=== PATIENT | male | born 1995 | race Caucasian/White ===

== ENCOUNTER 2019-09-05 06:49 | Emergency (ER) | payer OTHER ==
[~2019-09-05] VITALS: Ht 177.8 cm; Wt 60.0 kg
[2019-09-05 07:51] VITALS: BP 123/72
[2019-09-05 08:46] LABS: OCCULT BLOOD STOOL NEGATIVE (Neg)
== END 2019-09-05 07:54 ==
LOC: ER 06:50
DX: K64.9 Unspecified hemorrhoids (principal)
CPT/HCPCS: 82272; 99283

== ENCOUNTER 2019-11-06 21:57 | Emergency (ER) | payer OTHER ==
[~2019-11-06] VITALS: Ht 167.6 cm; Wt 77.3 kg
[2019-11-06] MEDS ORDERED: ketorolac trometh inj. 60 MG/2 ML VIAL IM ONE (22:45)
[2019-11-06 23:10] VITALS: BP 127/72
== END 2019-11-06 23:10 | disposition home or self-care (01) ==
LOC: ER 21:58
DX: M54.41 Lumbago with sciatica, right side (principal)
CPT/HCPCS: 96372; 99283; J1885

== ENCOUNTER 2019-12-07 19:26 | Emergency (ER) | payer MEDICAID, OTHER ==
[~2019-12-07] VITALS: Ht 167.6 cm; Wt 77.1 kg
[2019-12-07 19:34] VITALS: BP 142/87
== END 2019-12-07 20:34 | disposition home or self-care (01) ==
LOC: ER 19:27
DX: F15.90 Other stimulant use, unspecified, uncomplicated (principal); F11.90 Opioid use, unspecified, uncomplicated
CPT/HCPCS: 99281

== ENCOUNTER 2020-04-16 02:30 | Emergency (ER) | payer MEDICAID ==
[~2020-04-16] VITALS: Ht 167.6 cm; Wt 80.0 kg
[2020-04-16] MEDS ORDERED: rifampin 300mg capsule PO ONE (03:40)
[2020-04-16] MEDS ORDERED: sulfamethoxazole/trimethoprim DS (800/160mg) tablet PO ONE (03:40)
[2020-04-16] MEDS ORDERED: SULF1TAB49 PO (03:40)
[2020-04-16] MEDS ORDERED: rifaximin 550mg tablet PO ONE (03:45)
[2020-04-16 04:14] VITALS: BP 109/68
== END 2020-04-16 04:15 | disposition home or self-care (01) ==
LOC: ER 02:31
DX: L03.116 Cellulitis of left lower limb (principal); F11.10 Opioid abuse, uncomplicated; F17.218 Nicotine dependence, cigarettes, with other nicotine-induced disorders; F15.90 Other stimulant use, unspecified, uncomplicated; Z79.899 Other long term (current) drug therapy
CPT/HCPCS: 99283; 99285; 99406

== ENCOUNTER 2020-06-06 23:30 | Emergency (ER) | payer MEDICAID ==
[~2020-06-06] VITALS: Ht 167.6 cm; Wt 81.8 kg
[2020-06-06 23:35] VITALS: BP 124/76
--- NOTE | 2020-06-06 23:41 | NUR ---
Pt took 400 mg ibuprofen for pain at 1600 with little relief.
[2020-06-07] MEDS ORDERED: SULF1TAB49 PO (01:09)
[2020-06-07] MEDS ORDERED: sulfamethoxazole/trimethoprim DS (800/160mg) tablet PO ONE (01:25)
== END 2020-06-07 01:36 | disposition home or self-care (01) ==
LOC: ER 23:30
DX: L03.113 Cellulitis of right upper limb (principal); F15.90 Other stimulant use, unspecified, uncomplicated; F11.90 Opioid use, unspecified, uncomplicated; Z79.899 Other long term (current) drug therapy
CPT/HCPCS: 99284

== ENCOUNTER 2020-11-07 12:09 | Emergency (ER) | payer MEDICAID ==
[~2020-11-07] VITALS: Ht 170.2 cm; Wt 73.0 kg
[2020-11-07 12:24] VITALS: BP 117/72
[2020-11-07] MEDS ORDERED: pilocarpine 2% ophthalmic drops 15ml LEFTEYE ONE (13:40)
[2020-11-07] MEDS ORDERED: proparacaine 0.5% ophthalmic drops 15ml LEFTEYE ONE ×2 (13:50)
[2020-11-07] MEDS ORDERED: POLOS EACHEYE (14:14)
== END 2020-11-07 14:37 | disposition home or self-care (01) ==
LOC: ER 12:10
DX: H10.9 Unspecified conjunctivitis (principal); H57.12 Ocular pain, left eye; F15.90 Other stimulant use, unspecified, uncomplicated; F11.90 Opioid use, unspecified, uncomplicated; Z79.899 Other long term (current) drug therapy
CPT/HCPCS: 99283

== ENCOUNTER 2024-02-15 11:14 | Emergency (ER) | payer MEDICAID ==
[~2024-02-15] VITALS: Ht 175.3 cm; Wt 73.8 kg
[2024-02-15 12:02] LABS: BASOPHILS % (AUTO) 0.4 % (0-1); EOSINOPHILS # (AUTO) 0.1 X10'3 (0-0.9); EOSINOPHILS % (AUTO) 2.3 % (0-6); HEMATOCRIT 48.5 % (42.0-52.0); HEMOGLOBIN 16.4 g/dl (14.0-17.9); LYMPHOCYTES # (AUTO) 1.4 X10'3 (1.1-4.8); LYMPHOCYTES % (AUTO) 26.5 % (21-51); MEAN CORPUSCULAR HEMOGLOBIN 29.5 PG (27.0-31.0); MEAN CORPUSCULAR HGB CONC 33.9 g/dL (33.0-36.5); MEAN PLATELET VOLUME 7.6 FL (7.4-10.4); MONOCYTES # (AUTO) 0.4 X10'3 (0-0.9); MONOCYTES % (AUTO) 7.7 % (2-12); NEUTROPHILS # (AUTO) 3.4 X10'3 (1.8-7.7); NEUTROPHILS % (AUTO) 63.1 % (42-75); PLATELET COUNT 228 X10'3 (140-440); RED BLOOD COUNT 5.57 X10'6 (4.70-6.10); RED CELL DISTRIBUTION WIDTH 13.7 % (11.5-14.5); WHITE BLOOD COUNT 5.5 X10'3 (4.5-11.0)
[2024-02-15 12:10] LABS: ALBUMIN 4.3 G/DL (3.4-5.0); ANION GAP 4 (8-16); BLOOD UREA NITROGEN 12 MG/DL (7-18); BUN/CREATININE RATIO 13.6 (10.0-20.0); CALCIUM 8.7 MG/DL (8.5-10.1); CHLORIDE 104 MMOL/L (99-107); CREATININE 0.88 MG/DL (0.60-1.10); GLUCOSE 106 MG/DL (70-104); LIPASE 16 U/L (16-77); POTASSIUM 4.1 MMOL/L (3.5-5.1); SODIUM 141 MMOL/L (135-145); TOTAL CARBON DIOXIDE 33.1 MMOL/L (24-32); eCRCL 123 ML/MIN; eGFR > 90 ML/MIN
[2024-02-15] MEDS ORDERED: OMEP40CA21 PO (13:29)
[2024-02-15 13:43] VITALS: BP 128/84; PULSE 82; RESP 17; TEMP 98; O2SAT 100
== END 2024-02-15 13:45 | disposition home or self-care (01) ==
LOC: ER 11:15
DX: R10.13 Epigastric pain (principal); R11.10 Vomiting, unspecified; F15.10 Other stimulant abuse, uncomplicated; Z79.899 Other long term (current) drug therapy
CPT/HCPCS: 36415; 80048; 83690; 85025; 99283

== ENCOUNTER 2024-03-14 11:43 | Emergency (ER) | payer MEDICAID ==
[~2024-03-14] VITALS: Ht 175.3 cm; Wt 76.2 kg
[~2024-03-14 11:43] MED LIST: OMEP40CA21 PO
[2024-03-14 12:16] VITALS: BP 109/59; PULSE 69; TEMP 97.6; O2SAT 98
[2024-03-14] MEDS ORDERED: NAPR-56 PO (14:22)
[2024-03-14] MEDS ORDERED: DOXY-1 PO (14:22)
[2024-03-14] MEDS ORDERED: ketorolac trometh inj. 60 MG/2 ML VIAL IM ONE (14:30)
[2024-03-14 14:34] VITALS: RESP 17
[2024-03-14] MEDS: ketorolac tromethamine 15mg/ml inj. IM ONE (14:34)
== END 2024-03-14 14:52 | disposition home or self-care (01) ==
LOC: ER 11:43
DX: K04.7 Periapical abscess without sinus (principal); F15.90 Other stimulant use, unspecified, uncomplicated; Z79.899 Other long term (current) drug therapy
CPT/HCPCS: 96372; 99283; J1885

== ENCOUNTER 2025-09-04 16:57 | Emergency (ER) | payer MEDICAID ==
[~2025-09-04] VITALS: Ht 175.3 cm; Wt 86.3 kg
[2025-09-04 17:01] VITALS: BP 96/56; PULSE 51; RESP 18; TEMP 97.5; O2SAT 97
--- NOTE | 2025-09-04 17:05 | Physician Documentation ---
History of Present Illness Stated Complaint: VOMITING Primary Medical Doctor: NONE HPI Patient 29-year-old male that presents to the emergency department for 3 days of nausea vomiting abdominal pain and mild diarrhea. Patient denies fever chills blood in his urine blood in his emesis or any other symptoms at this time. Patient denies any known sick contacts at this time. Very pleasant 29-year-old male states he has had excessive GI upset especially in the mornings. Asked if he drinks alcohol he denies. Does state that most evenings he eats ice cream right before bed. Day of Onset: Sep 04, 2025 Medication Reconciliation Allergies: Coded Allergies: No Known Allergies (Unverified , 09/04/25) Scheduled Omeprazole (Prilosec), 1 CAP PO DAILY Past Medical History Past Medical History: No Pertinent History Past Surgical History: noncontributory Alcohol Use: None Drug Use: methamphetamine, heroin Lives In: Home Occupation: employed Review of Systems All Other Systems at this time: Reviewed and Negative ROS As stated above in the HPI, otherwise all systems are reviewed and negative. Physical Exam Physical Exam General: Alert, no apparent distress. Respiratory: Lungs clear, no respiratory distress. Cardiovascular: Regular rate and rhythm, no murmurs. Gastrointestinal: Soft, nontender, nondistended. Bowels sounds present. . Neurologic: Oriented x4. Psychiatric: Normal mood and affect. Skin: Normal color, warm and dry. No edema, no ecchymosis. Medical Decision Making Additional information obtaine: N/A Findings I suspect GI upset secondary to late night ice cream leading to increased acidity and increased a gastric acid in the evening attribute to his symptoms being primarily in the morning Differential Dx:Considerations: Cholelithasis, Gastritis/PUD, Hernia Departure Disposition: HOME / SELF CARE / HOMELESS Impression: Primary Impression: Acute gastritis Condition: Stable Discharge Instructions: Gastritis, Adult Referrals: NO PRIMARY CARE PROVIDER (PCP) Prescriptions Omeprazole (Prilosec) 40 Mg Capsule 1 CAP PO DAILY for 30 Days, #30 CAP Prov: DONTRELL TINSLEY NP 09/04/25 Education Educated: Patient Educated regarding: diagnosis Signature Scribe Signature: landy Attestation: Scribed for Dontrell Tinsley Np by Dontrell De Leon NP . 09/04/25 18:28 ALONDRA BROWNINGP Sep 04, 2025 17:05 DONTRELL TINSLEY NP Sep 04, 2025 17:08
[2025-09-04] MEDS ORDERED: OMEP40CA21 PO (18:28)
[2025-09-04] MEDS: mag hydrox/Alum hydrox/simeth 30ml oral suspension PO ONE (19:07)
[2025-09-04] MEDS: LIDOcaine 2% Viscous 15ml cup MM PRN (19:07)
== END 2025-09-04 19:13 | disposition home or self-care (01) ==
LOC: ER 16:58
DX: K29.00 Acute gastritis without bleeding (principal)
CPT/HCPCS: 99283

== ENCOUNTER 2025-09-16 12:36 | Emergency (ER) | payer MEDICAID ==
[~2025-09-16] VITALS: Ht 172.7 cm; Wt 83.4 kg
[2025-09-16 12:37] VITALS: BP 115/71; PULSE 58; RESP 16; TEMP 98; O2SAT 97
--- NOTE | 2025-09-16 14:04 | Physician Documentation ---
History of Present Illness ~ Chief Complaint: Medical Clearance Stated Complaint: MED CLEARANCE Time Seen by MD: 13:58 Primary Medical Doctor: BLAS HPI Patient is seen today with complaints of needing released to go back to work after a week or so of nausea and vomiting. Patient states his symptoms resolved a couple of days ago and feeling much better in his ready to go back to work at the [employer]. Patient currently denies any chest pain or shortness of breath or abdominal pain or nausea, vomiting, diarrhea. He has no other concern or complaint at this time. Tetanus within 5 years?: Yes Medication Reconciliation Allergies: Coded Allergies: No Known Allergies (Unverified , 09/04/25) Scheduled Omeprazole (Prilosec), 1 CAP PO DAILY Past Medical History Past Medical History: No Pertinent History Past Surgical History: noncontributory Alcohol Use: None Drug Use: methamphetamine, heroin Lives In: Home Occupation: employed Review of Systems Constitutional: Denies: chills, fever, weakness Eyes: Denies: pain, blurred vision ENT: Denies: ear pain, nose pain, throat pain, mouth pain Respiratory: Denies: cough, shortness of breath Cardiovascular: Denies: chest pain, palpitations Gastrointestinal: Denies: abdominal pain, nausea, vomiting Genitourinary: Denies: burning, dysuria Male Genitalia: Denies: penile discharge, testicular pain Neurological: Denies: headache, dizziness Musculoskeletal: Denies: pain, swelling Integumentary: Denies: rash, lesions Allergic/Immunologic: Denies: hives, itching Hematologic/Lymphatic: Denies: no symptoms reported Psychiatric: Denies: depression, anxiety Physical Exam Vital Signs: Temperature: 98.0, Source: Temporal, Heart Rate: 58, Respiratory Rate: 16, BP: 115/71, Pulse Oximetry: 97, Weight: 83.400 Oxygen Flow Rate: 0 Physical Exam General: Awake and Alert, no acute distress. HEENT: Conjunctiva pink, Sclera clear, Mucus Membranes moist. Neck: Supple without masses and tenderness. Resp: Unlabored. Lungs clear to auscultation bilaterally. Heart: Regular Rate and rhythm, normal S1 and S2 without murmur, rub or gallop. Abdomen: Soft and non tender no organomegaly Extremities: No cyanosis,clubbing or edema. Skin: Warm and Dry. Progress Results/Orders Results/Orders Vital Signs 09/16/25 12:37 Temp 98.0 Pulse 58 Resp 16 B/P (MAP) 115/71 Pulse Ox 97 O2 Flow Rate 0 Medical Decision Making Additional information obtaine: N/A Findings Patient is seen today with complaints of needing released to go back to work after a week or so of nausea and vomiting. Patient states his symptoms resolved a couple of days ago and feeling much better in his ready to go back to work at the [employer]. Patient currently denies any chest pain or shortness of breath or abdominal pain or nausea, vomiting, diarrhea. He has no other concern or complaint at this time. Patient is cleared to return to work without any restriction. Patient will follow up with primary care in 7-10 days if needed or return to ER if no better or with any worsening, concerning or changing symptoms. Differential Dx:Considerations: Include: Hepatitis Differential Diagnosis gastritis, gastroenteritis, Departure Disposition: 01 HOME / SELF CARE / HOMELESS Impression: Primary Impression: General medical exam Condition: Stable Discharge Instructions: Medical Screening Exam Additional Instructions: Patient is cleared to return to work without any restriction. Patient will follow up with primary care in 7-10 days if needed or return to ER if no better or with any worsening, concerning or changing symptoms. Referrals: NO PRIMARY CARE PROVIDER (PCP) Signature Scribe Signature: No scribe Attestation: No scribe ION MACEDO PAC Sep 16, 2025 14:04
== END 2025-09-16 14:26 | disposition home or self-care (01) ==
LOC: ER 12:36
DX: Z00.00 Encounter for general adult medical examination without abnormal findings (principal); F15.90 Other stimulant use, unspecified, uncomplicated; F19.90 Other psychoactive substance use, unspecified, uncomplicated; Z79.899 Other long term (current) drug therapy
CPT/HCPCS: 99282

== ENCOUNTER 2025-10-10 17:33 | Emergency (ER) | payer MEDICAID ==
[~2025-10-10] VITALS: Ht 167.6 cm; Wt 81.7 kg
[2025-10-10 17:41] VITALS: BP 128/84; PULSE 82; RESP 16; TEMP 98.1; O2SAT 94
[2025-10-10] MEDS ORDERED: HYDR-3965 PO (17:51)
[2025-10-10] MEDS ORDERED: ONDA-243 PO (17:51)
--- NOTE | 2025-10-10 17:52 | Physician Documentation ---
History of Present Illness Chief Complaint: Abdominal Pain Stated Complaint: FLANK PAIN Time Seen by MD: 17:49 Primary Medical Doctor: NONE HPI Right upper quadrant pain with a recent ultrasound imaging showing gallstones. Medication Reconciliation Allergies: Coded Allergies: No Known Allergies (Unverified , 10/10/25) Scheduled Hydrocodone Bit/Acetaminophen 5/325 MG ([place] 5/325 MG), 1 TAB PO Q6H Scheduled PRN ONDANSETRON ODT 4mg tablet (Ondansetron Odt), 1 TAB PO Q6H PRN PRN for nausea/vomiting Discontinued Medications Omeprazole (Prilosec), 1 CAP PO DAILY Discontinued Reason: Auto Discontinued Past Medical History Past Medical History: No Pertinent History Past Surgical History: noncontributory Alcohol Use: None Drug Use: methamphetamine, heroin Lives In: Home Occupation: employed Review of Systems All Other Systems at this time: Reviewed and Negative Constitutional: Denies: fever, malaise Gastrointestinal: Reports: abdominal pain; Denies: abdomen distended, nausea, vomiting, constipated, melena, hematemesis, hematochezia Integumentary: Denies: rash, itching Physical Exam Vital Signs: RN Vital Signs have been reviewed: Yes, Temperature: 98.1, Source: Oral, Heart Rate: 82, Respiratory Rate: 16, BP: 128/84, Pulse Oximetry: 94, Weight: 81.700 Oxygen Flow Rate: 0 General Appearance: alert, WD/WN, mild distress EENT: PERRL/EOMI Neck: normal inspection Respiratory: lungs clear Chest: no accessory muscle use Cardiovascular: normal peripheral pulses Gastrointestinal: tenderness, other (Mild [place] sign) Back: normal inspection Extremities: normal range of motion Neurologic: oriented x4 Skin: normal color, warm/dry; No: rash Lymphatic: no adenopathy Progress Results/Orders Results/Orders Vital Signs 10/10/25 17:41 Temp 98.1 Pulse 82 Resp 16 B/P (MAP) 128/84 Pulse Ox 94 O2 Flow Rate 0 Medical Decision Making Additional information obtaine: old records Findings 30-year-old male who presents to the emergency department for workup of reported gallstones. Seen by primary care and sent for outpatient ultrasound imaging for which she reports shows gallstones. He is unable to articulate if there is associated common bile duct dilatation and/or gallbladder wall thickening co nsistent with cholecystitis. He does however denies fevers, nausea or vomiting, change in bowel habits and/or rash. Patient voices concerns regarding knee visiting stay in the emergency department and wishes to return for comprehensive workup another time. Shared decision with the patient regarding his request and I do support it. I will be provided him with breakthrough pain management. Low suspicion for acute cholecystitis, cholangitis or choledocholithiasis requiring advanced imaging at this time as surgical evaluation. Patient to return tomorrow with the next day for comprehensive examination to include labs, formal ultrasound imaging and referral as needed. Additionally the patient does have a recent reported diagnosis of the hepatitis-C which may be responsible for his pain. Despite patient's safely discharged in the emergency department with a strict instructions to return. Differential Dx:Considerations: Bowel obstruction, Cholangitis, Cholelithasis, Constipation, Diverticular disease, Hernia, Hepatitis Departure Disposition: HOME / SELF CARE / HOMELESS Impression: Primary Impression: Cholelithiasis without obstruction Qualified Codes: K80.80 - Other cholelithiasis without obstruction Additional Impression: Hepatitis C Condition: Stable Discharge Instructions: Cholelithiasis Additional Instructions: Please follow up with the emergency department or your primary care physician for labs and formal workup for cholelithiasis with or without cholecystitis and/or obstruction. Referrals: NO PRIMARY CARE PROVIDER (PCP) Prescriptions Hydrocodone Bit/Acetaminophen 5/325 MG ([place] 5/325 MG) 5 Mg/325 Mg Tablet 1 TAB PO Q6H for pain, #9 TAB Prov: KAYLIE ESCOBAR 10/10/25 ONDANSETRON ODT 4mg tablet (ONDANSETRON ODT) 4 Mg Tab.rapdis 1 TAB PO Q6H PRN PRN for nausea/vomiting for 4 Days, #16 TAB 0 Refills Prov: KAYLIE ESCOBAR 10/10/25 Education Educated: Patient Educated regarding: diagnosis, treatment, prognosis, need for follow up Signature Scribe Signature: . Attestation: . KAYLIE ESCOBAR Oct 10, 2025 17:52
[2025-10-14] MEDS ORDERED: ONDA-245 PO (18:32)
[2025-10-14] MEDS ORDERED: HYDR-3965 PO (18:32)
== END 2025-10-10 18:22 | disposition home or self-care (01) ==
LOC: ER 17:33
DX: K80.20 Calculus of gallbladder without cholecystitis without obstruction (principal); B19.20 Unspecified viral hepatitis C without hepatic coma
CPT/HCPCS: 99283